=== PATIENT | male | born 1955 | race Caucasian/White ===

== ENCOUNTER 2020-10-15 05:31 | Day surgery (SDC) | payer OTHER, SELFPAY ==
[2020-10-07 16:05] VITALS: BMI 32.0
--- NOTE | 2020-10-15 07:54 | P.PNAN_ITS ---
Anes - Initial Pre Proc Eval Procedure: Operation Date: 10/15/20 09:45 Proposed Procedures p Colonoscopy - Angel Gray MD Date/Time: 10/15/20 07:54 Surgeon: Angel Gray MD Pre Op Diagnosis: positive cologuard Patient Data Age: 65 Gender: M Height: 1.73 m Weight: 95.5 kg Allergies Allergy/AdvReac Type Severity Reaction Status Date / Time No Known Allergies Verified 10/15/20 08:27 Home Medications Medication Instructions Recorded Confirmed Type aspirin [Enteric Coated Aspirin] 325 mg PO DAILY 10/07/20 10/07/20 History metoprolol succinate 100 mg PO DAILY 10/07/20 10/07/20 History simvastatin 40 mg PO DAILY 10/07/20 10/07/20 History Patient hx anesthesia problems: none Family hx anesthesia problems: none [facility] Past Medical History Medical History (Updated 10/15/20 @ 07:56 by Tay Meredith MD) Carotid arterial disease left 100% occluded, right >70% CVA (cerebral vascular accident) r side weakness HTN (hypertension) Hyperlipidemia Obesity Presence of internal carotid stent PUD (peptic ulcer disease) Social History Social History Smoking packs per day: 1.5 Smoking cigarettes per day: 30.0 Years smoked: 40 Smoking pack-years: 60.00 Smoking status: Current every day smoker Tobacco type: cigarettes Alcohol intake: current Substance use: never Substance use type: does not use Living arrangements: with family Spiritual care concerns: No Anes - Eval Final PreProcedure Day of Procedure 10/15/20 07:54 Patient weight: obese Heart: regular rate and rhythm Lungs: clear to auscultation and normal air movement Airway: Mallampati scale class II Neurological: alert and oriented Last oral intake: >/= 8 hours ASA classification: III Emergent: no Anesthetic plan: proceed Anesthesia type and monitoring: general GIVS Informed Consent: The patient's anesthetic plan and its attendant risks and benefits were discussed with the patient/family/POA. Questions were solicited and answers provided to the satisfaction of the patient/family/POA.
[2020-10-15 08:28] VITALS: BP 133/79; PULSE 76; RESP 20; TEMP 36.6; O2SAT 96
[2020-10-15] MEDS: LACTATED RINGERS 1,000 ML 150 ML IV CONT (08:35)
--- NOTE | 2020-10-15 09:06 | PM.HPGS ---
History of Present Illness History of Present Illness Consent: Risks, benefits, and alternatives have been discussed and questions answered. Patient agrees to proceed with procedure. Chief complaint: positive cologuard Narrative: Kevin Greenwood is a 65 year old male here for first colonoscopy, had FIT + Review of Systems Constitutional: Constitutional: Denies headache(s) and Denies weakness Eyes: Eyes: Denies blurry vision ENT: Reports Normal hearing present, Denies headache(s) and Denies neck pain Cardiovascular: Cardiovascular: Denies chest pain and Denies dyspnea Respiratory: Respiratory: Denies dyspnea Gastrointestinal: Gastrointestinal: Reports no additional gastrointestinal complaints Genitourinary: Genitourinary: Denies dysuria Musculoskeletal: Musculoskeletal: Denies neck pain Integumentary/Breasts: Skin/Breast: Denies dry skin Neurologic: Reports Normal hearing present, Denies headache(s) and Denies weakness Psychiatric: Psychiatric: Denies anxiety Endocrine: Endocrine: Denies change in body appearance Hematologic/Lymphatic: Hematologic/Lymphatic: Denies easy bleeding Allergic/Immunologic: Allergic/Immunologic: Denies urticaria PMFSH Past Medical History Medical History (Updated 10/15/20 @ 09:07 by Angel Gray MD) Carotid arterial disease left 100% occluded, right >70% CVA (cerebral vascular accident) r side weakness Fecal occult blood test positive HTN (hypertension) Hyperlipidemia Obesity Presence of internal carotid stent PUD (peptic ulcer disease) Social History Social History Smoking packs per day: 1.5 Smoking cigarettes per day: 30.0 Years smoked: 40 Smoking pack-years: 60.00 Smoking status: Current every day smoker Tobacco type: cigarettes Alcohol intake: current Substance use: never Substance use type: does not use Living arrangements: with family Spiritual care concerns: No Meds Home Medications and Allergies Home Medications Medication Instructions Recorded Confirmed Type aspirin [Enteric Coated Aspirin] 325 mg PO DAILY 10/07/20 10/07/20 History metoprolol succinate 100 mg PO DAILY 10/07/20 10/07/20 History simvastatin 40 mg PO DAILY 10/07/20 10/07/20 History Allergies Allergy/AdvReac Type Severity Reaction Status Date / Time No Known Allergies Verified 10/15/20 08:27 Vital Signs Vital Signs - 24 hr 10/15/20 08:28 Temperature 97.9 F Pulse Rate 76 Respiratory Rate 20 Blood Pressure 133/79 Pulse Oximetry 96 Exam Const: General: comfortable and no acute distress HENMT: General nose exam: Normal nares present Eyes: General: appearance normal, both eyes and all related structures Neck: Neck: no JVD Resp: Auscultation: clear to auscultation bilaterally Cardio: Rate: regular rate Rhythm: regular rhythm GI: Inspection: non-distended GI Palp: Yes Soft to palpation Skin: General skin exam: normal color Neuro: General: gait normal Speech: normal speech Extrem: General: normal to inspection Psych: Mental Status: mental status grossly normal Assessment and Plan Assessment and plan (1) Fecal occult blood test positive: Code(s): R19.5 - Other fecal abnormalities Status: Acute Assessment and Plan: colonoscopy
[2020-10-15 09:42] VITALS: BP 93/55; PULSE 66; RESP 17; O2SAT 97
[2020-10-15 09:52] VITALS: BP 90/60; PULSE 74; RESP 26; O2SAT 100
[2020-10-15 10:02] VITALS: BP 131/77; PULSE 68; RESP 24; O2SAT 98
== END 2020-10-15 10:17 | disposition home or self-care (01) ==
PROVIDERS: PCP Family Medicine Adolescent Medicine; Visit Provider Internal Medicine Gastroenterology
PROC: 0DJD8ZZ Inspection of Lower Intestinal Tract, Via Natural or Artificial Opening Endoscopic (ICD-10-PCS; CPT 45378; principal; 2020-10-15 09:45)
DX: R19.5 Other fecal abnormalities (principal); D12.0 Benign neoplasm of cecum; D12.5 Benign neoplasm of sigmoid colon; D12.3 Benign neoplasm of transverse colon; D12.2 Benign neoplasm of ascending colon; I69.351 Hemiplegia and hemiparesis following cerebral infarction affecting right dominant side; I65.22 Occlusion and stenosis of left carotid artery; I10 Essential (primary) hypertension; E78.5 Hyperlipidemia, unspecified; E66.9 Obesity, unspecified; K27.9 Peptic ulcer, site unspecified, unspecified as acute or chronic, without hemorrhage or perforation; F17.210 Nicotine dependence, cigarettes, uncomplicated
CPT/HCPCS: 45385; 45380; 88305; 88313; J2704; J7120

== ENCOUNTER 2022-12-13 02:00 | Day surgery (SDC) | payer OTHER, SELFPAY ==
[2022-12-01 13:17] VITALS: BMI 27.4
[2022-12-13 09:37] VITALS: BP 135/66; PULSE 66; RESP 18; TEMP 36.2; O2SAT 98
[2022-12-13] MEDS: LACTATED RINGERS 1,000 ML 150 ML IV CONT (09:48)
--- NOTE | 2022-12-13 10:30 | WPDANESEPPF ---
Anes - Initial Pre Proc Eval Procedure: Operation Date: 12/13/22 11:00 Proposed Procedures p Colonoscopy - Angel Gray MD Date/Time: 12/13/22 10:30 Surgeon: Angel Gray MD Pre Op Diagnosis: hx of colon polyps Patient Data Age: 67 Gender: M Height: 1.7 m Weight: 77 kg Last Vital Signs Temp 97.1 F L 12/13/22 09:37 Pulse 66 12/13/22 09:37 Resp 18 12/13/22 09:37 BP 135/66 12/13/22 09:37 Pulse Ox 98 12/13/22 09:37 O2 Del Method Room Air 12/13/22 09:37 Allergies Allergy/AdvReac Type Severity Reaction Status Date / Time No Known Allergies Allergy Verified 12/13/22 09:37 Home Medications Medication Instructions Recorded Confirmed Type aspirin 325 mg tablet,delayed 325 mg PO DAILY 10/07/20 12/01/22 History release metoprolol succinate 100 mg 100 mg PO DAILY #90 tabs 04/12/22 12/01/22 Rx tablet,extended release 24 hr simvastatin 40 mg tablet 40 mg PO DAILY #90 tabs 07/09/22 12/01/22 Rx Patient hx anesthesia problems: none Family hx anesthesia problems: none Results Review: All pre-operative results and documents have been reviewed as part of the pre-operative evaluation. [facility] Past Medical History Medical History (Updated 01/26/22 @ 15:43 by Ky Perez MD) Carotid arterial disease left 100% occluded, right >70% CVA (cerebral vascular accident) (2008) r side weakness Fecal occult blood test positive History of right common carotid artery stent placement (2012) HTN (hypertension) Obesity Presence of internal carotid stent PUD (peptic ulcer disease) Social History Social History Smoking packs per day: 1 Smoking cigarettes per day: 20.0 Years smoked: 50 Smoking pack-years: 50.00 Smoking status: Current every day smoker Tobacco type: cigarettes Alcohol intake: current Drinks per week: 6 Alcohol use details: socially Substance use: never Substance use type: does not use Living arrangements: other Additional living arrangements comments: with sp Spiritual care concerns: No Anes - Eval Final PreProcedure Day of Procedure 12/13/22 10:30 Patient weight: overweight Heart: regular rate and rhythm Lungs: clear to auscultation Airway: Mallampati scale class II Neurological: alert and oriented Last oral intake: >/= 8 hours ASA classification: III Emergent: no Anesthetic plan: proceed Anesthesia type and monitoring: general GIVS and standard monitoring Results Review: All pre-operative results and documents have been reviewed as part of the pre-operative evaluation. Informed Consent: The patient's anesthetic plan and its attendant risks and benefits were discussed with the patient/family/POA. Questions were solicited and answers provided to the satisfaction of the patient/family/POA.
--- NOTE | 2022-12-13 10:56 | PM.HPGS ---
History of Present Illness History of Present Illness Consent: Risks, benefits, and alternatives have been discussed and questions answered. Patient agrees to proceed with procedure. Chief complaint: hx of colon polyps Narrative: Kevin Greenwood is a 67 year old male with several colon polyps removed in 2020 Review of Systems Constitutional: Constitutional: Denies headache(s) and Denies weakness Eyes: Eyes: Denies blurry vision ENT: Reports Normal hearing present, Denies headache(s) and Denies neck pain Cardiovascular: Cardiovascular: Denies chest pain and Denies dyspnea Respiratory: Respiratory: Denies dyspnea Gastrointestinal: Gastrointestinal: Reports no additional gastrointestinal complaints Genitourinary: Genitourinary: Denies dysuria Musculoskeletal: Musculoskeletal: Denies neck pain Integumentary/Breasts: Skin/Breast: Denies dry skin Neurologic: Reports Normal hearing present, Denies headache(s) and Denies weakness Psychiatric: Psychiatric: Denies anxiety Endocrine: Endocrine: Denies change in body appearance Hematologic/Lymphatic: Hematologic/Lymphatic: Denies easy bleeding Allergic/Immunologic: Allergic/Immunologic: Denies urticaria PMFSH Past Medical History Medical History (Updated 12/13/22 @ 10:57 by Angel Gray MD) Adenomatous colon polyp Carotid arterial disease left 100% occluded, right >70% CVA (cerebral vascular accident) (2008) r side weakness Fecal occult blood test positive History of right common carotid artery stent placement (2012) HTN (hypertension) Obesity Presence of internal carotid stent PUD (peptic ulcer disease) Social History Social History Smoking packs per day: 1 Smoking cigarettes per day: 20.0 Years smoked: 50 Smoking pack-years: 50.00 Smoking status: Current every day smoker Tobacco type: cigarettes Alcohol intake: current Drinks per week: 6 Alcohol use details: socially Substance use: never Substance use type: does not use Living arrangements: other Additional living arrangements comments: with sp Spiritual care concerns: No Meds Home Medications and Allergies Home Medications Medication Instructions Recorded Confirmed Type aspirin 325 mg tablet,delayed 325 mg PO DAILY 10/07/20 12/01/22 History release metoprolol succinate 100 mg 100 mg PO DAILY #90 tabs 04/12/22 12/01/22 Rx tablet,extended release 24 hr simvastatin 40 mg tablet 40 mg PO DAILY #90 tabs 07/09/22 12/01/22 Rx Allergies Allergy/AdvReac Type Severity Reaction Status Date / Time No Known Allergies Allergy Verified 12/13/22 09:37 Vital Signs Vital Signs - 24 hr 12/13/22 09:37 Temperature 97.1 F L Pulse Rate 66 Respiratory Rate 18 Blood Pressure 135/66 Pulse Oximetry 98 Oxygen Delivery Room Air Exam Const: General: comfortable and no acute distress HENMT: Face/Nose/Sinus: Normal nares present Eyes: General: appearance normal, both eyes and all related structures Neck: Neck: no JVD Resp: Auscultation: clear to auscultation bilaterally Cardio: Rate: regular rate Rhythm: regular rhythm GI: Inspection: non-distended GI Palp: Yes Soft to palpation Skin: General skin exam: normal color Neuro: General: gait normal Speech: normal speech Extrem: General: normal to inspection Psych: Mental Status: mental status grossly normal Assessment and Plan Assessment and plan (1) Adenomatous colon polyp: Code(s): D12.6 - Benign neoplasm of colon, unspecified Status: Acute Assessment and Plan: colonoscopy
[2022-12-13 11:19] VITALS: BP 88/60; PULSE 72; RESP 21; O2SAT 97
[2022-12-13 11:29] VITALS: BP 113/75; PULSE 69; RESP 17; O2SAT 98
[2022-12-13 11:39] VITALS: BP 128/80; PULSE 74; RESP 20; O2SAT 97
== END 2022-12-13 11:47 | disposition home or self-care (01) ==
PROVIDERS: PCP Family Medicine Adolescent Medicine; Visit Provider Internal Medicine Gastroenterology
PROC: 0DJD8ZZ Inspection of Lower Intestinal Tract, Via Natural or Artificial Opening Endoscopic (ICD-10-PCS; CPT 45378; principal; 2022-12-13 11:00)
DX: Z09 Encounter for follow-up examination after completed treatment for conditions other than malignant neoplasm (principal); D12.3 Benign neoplasm of transverse colon; D12.5 Benign neoplasm of sigmoid colon; K63.5 Polyp of colon; K64.8 Other hemorrhoids; I10 Essential (primary) hypertension; I69.351 Hemiplegia and hemiparesis following cerebral infarction affecting right dominant side; F17.210 Nicotine dependence, cigarettes, uncomplicated; Z79.82 Long term (current) use of aspirin
CPT/HCPCS: 45385; 88305; J2704; J7120

== ENCOUNTER 2024-09-16 13:47 | Outpatient (CLI) | payer OTHER, MEDICARE, SELFPAY ==
--- NOTE | ~2024-09-16 | US_ITS ---
US art doppler w press LE BI INDICATION: Peripheral arterial disease TECHNIQUE: Segmental pressures and plethysmographic and Doppler waveforms of the brachial and lower e xtremity arteries were obtained. COMPARISON: None. FINDINGS: Right and left brachial artery pressures of 144 mm Hg and 154 mm Hg, respectively, are concordant (no rmal difference <= 30 mmHg). There is biphasic flow in the lower extremity arteries bilaterally The right ankle-brachial index (ALISA) is 0.97 (normal >= 0.9-1.0). The right great toe-brachial index (TBI) is 0.79 (normal >= 0.60). The left ALISA is 0.95. The left TBI is 1.02. IMPRESSION: 1. Normal bilateral ankle-brachial indices. Reviewed, dictated and finalized at location A.
--- OUTSIDE RECORDS SUMMARY | 2024-09-16 14:01 | XMS_ITS | Encounter Summary ---
Author Organization [facility] Address [address] [place] [address] Care Team Providers Care Thermodynamics Professor Name Role Phone Ky Perez MD Primary Care Prov ider Encounter Details Date Type Department Care Team (Late st Contact Info) Description 07/11/2012 Orders Only [facility] Health Information Management [address] [place] [id number] Scanning, Provider Social History Tobacco Use Types Packs/Day Years Used Date Smoking Tobacco: Never Assessed Sex and Gender Information Value Date Recorded Sex Assigned at Not on file Legal Sex Male 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 Gender Identity Not on file Sexual Orientation Not on file documented as of this encounter Plan of Treatment Not on file documented as of this encounter Procedures Procedure Name Priority Date/Time Associated Diagnosis Comments SCAN - RADIOLOGY/IMAGING 07/11/2012 documented in this encounter Results * SCAN - RADIOLOGY/IMAGING (07/11/2012) Anatomical Region Laterality Modality Other us Provider Scanning Final Result documented in this encounter Visit Diagnoses Not on filedocumented in this encounter Care Teams Thermodynamics Professor Relationship Specialty Start Date End Date Ky Perez MD [address] [place] [address] PCP - General Family Medicine 12/25/18 documented as of this encounter
--- OUTSIDE RECORDS SUMMARY | 2024-09-16 14:01 | XMS_ITS | Clinical Summary ---
Author Organization [facility] [address] Address [address] [place] [address] Care Team Providers Care Medical Laboratory Manager Name Role Phone Ky Perez MD Primary Care Prov ider Allergies No known active allergies Medications simvastatin (ZOCOR) 40 mg tablet 1 tablet daily 01/08/2019 Active aspirin 325 mg tablet Take 325 mg by mouth daily Active metoprolol XL (TOPROL-XL) 100 mg 24 hr tablet Take 1 tablet (100 mg total) by mouth daily 90 tablet 3 07/15/2019 Active Active Problems Problem Noted Date Diagnosed Date Severe concentric left ventricular hypertrophy 0 03/13/2019 Surgical History Surgery Date Site/Laterality Comments CATARACT EXTRACTION Medical History Medical History Date Comments Heart murmur Hypertension High cholesterol Stroke (HCC) Family History Relation Name Status Comments Brother Alive STROKE Father (Age 39) GUN SHOT Mother (Age 73) STROKE Sister Alive GOOD Social History Tobacco Use Types Packs/Day Years Used Date Smoking Tobacco: Every Day Cigarettes Smokeless Tobacco: Never Alcohol Use Standard Drinks/Week Comments Yes 0 (1 standard drink = 0.6 oz pur e alcohol) 12-18 PER WEEKEND Personal Safety Answer Date Recorded Getting School Help Needed Not on file 05/12 Sex and Gender Information Value Date Recorded Sex Assigned at Not on file Legal Sex Male 6:43 PM SHOP TECH Gender Identity Not on file Sexual Orientation Not on file Obstetrics History Last Filed Vital Signs Vital Sign Reading Time Taken Comments Blood Pressure 183/102 05/27/2019 8:57 AM CDT Pulse 73 05/27/2019 8:57 AM CDT Temperature - - Respiratory Rate - - Oxygen Saturation 98% 03/13/2019 4:37 PM SHOP TECH Inhaled Oxygen Concentration - - Weight 76.7 kg (169 lb) 05/27/2019 8:57 AM CDT Height 170.2 cm (5' 7) 05/27/2019 8:57 AM CDT Body Mass Index 26.47 05/27/2019 8:57 AM CDT Plan of Treatment Not on file Insurance [employer] OPEN ACCESS Care Teams Medical Laboratory Manager Relationship Specialty Start Date End Date Ky Perez MD [address] [place] [address] PCP - General Family Medicine 12/25/18
--- OUTSIDE RECORDS SUMMARY | 2024-09-16 14:01 | XMS_ITS | Referral Summary ---
Author Organization [facility] [address] Address [address] [place] [address] Care Team Providers Care Acid Patroller Name Role Phone Ky Perez MD Primary [...] Severe concentric left ventricular hypertrophy 0 03/13/2019 Social History Tobacco Use Types Packs/Day Years [...] on file Legal Sex Male 6:43 PM UM RN Gender Identity Not on file Sexual Orientation Not on file Last Filed Vital Signs Vital Sign Reading Time Taken Comments Blood Pressure 183/102 05/27/2019 8:57 AM CDT Pulse 73 05/27/2019 8:57 AM CDT Temperature - - Respiratory Rate - - Oxygen Saturation 98% 03/13/2019 4:37 PM UM RN Inhaled Oxygen Concentration - - Weight 76.7 kg (169 lb) 05/27/2019 8:57 AM CDT Height 170.2 cm (5' 7) 05/27/2019 8:57 AM CDT Body Mass Index 26.47 05/27/2019 8:57 AM CDT Plan of Treatment Not on file Insurance [employer] OPEN ACC[employer] Care Teams Acid Patroller Relationship Specialty Start Date End Date Ky Perez MD [address] [place] [address] PCP - General Family Medicine 12/25/18
--- OUTSIDE RECORDS SUMMARY | 2024-09-16 14:01 | XMS_ITS | Clinical Summary ---
Author Organization [facility] Address [address] [place] [address] Care Team Providers Care Education Manager Name Role Phone Ky Perez MD Primary Care Provider + Source Comments [facility],non-owned Affiliates and Associated Physician Practices is amultiple site organization consisting of ambulatory clinics and hospital sitesin [place], [place], [place] and [place]. This disclosure is being madepursuant to the Care Everywhere program and may not contain all information available regarding this patient. Last updated 17.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 04/09/2014 Occlusion and stenosis of unspecified carotid ar bernice 08/08/2012 Family History Medical History Relation Name Comments Hypertension Mother Status: d Relation Name Status Comments Mother Social History Tobacco Use Types Packs/Day Years Used Date Smoking Tobacco: Every Day Cigarettes Smokeless Tobacco: Never Alcohol Use Standard Drinks/Week Comments Yes 10 (1 standard drink = 0.6 oz pu re alcohol) Sex and Gender Information Value Date Recorded Sex Assigned at Not on file Legal Sex Male 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 BLUEPRINT REPRODUCER Gender Identity Not on file Sexual Orientation Not on file Last Filed Vital Signs Vital Sign Reading Time Taken Comments Blood Pressure 126/72 04/27/2016 8:57 AM BLUEPRINT REPRODUCER Pulse 80 04/27/2016 8:57 AM BLUEPRINT REPRODUCER Temperature 37 C (98.6 F) 04/27/2016 8:57 AM BLUEPRINT REPRODUCER Respiratory Rate 16 08/21/2012 9:02 AM CDT Oxygen Saturation 96% 04/27/2016 8:57 AM BLUEPRINT REPRODUCER Inhaled Oxygen Concentration - - Weight 77.1 kg (170 lb) 04/27/2016 8:57 AM BLUEPRINT REPRODUCER Height 170.2 cm (5' 7) 04/27/2016 8:57 AM BLUEPRINT REPRODUCER Body Mass Index 26.63 04/27/2016 8:57 AM BLUEPRINT REPRODUCER Plan of Treatment Health Maintenance Due Date Last Done Comments COLOGUARD (AGES 45-75) - COL ON CA SCREENING 1955 COLON MONITORING 1955 COLONOSCOPY - COLON CA SCREENING 1955 CT COLONOGRAPHY - COLON CA SCREENING 1955 Colorectal Cancer Screening 1955 FIT - COLON CA SCREENING 1955 FLEX SIG - COLON CA SCREENING 1955 LIPID TESTING 1955 HEPATITIS C SCREENING 10/01/1973 DTAP/TDAP/TD VACCINES (1 - Tdap) 10/05/1974 PNEUMOCOCCAL VACCINE 50+ (1 of 2 - PCV) 10/05/1974 ZOSTER VACCINE (1 of 2) 10/05/2005 AAA SCREENING 10/05/2020 COVID-19 VACCINE (1 - 2023-2 5 season) 2023 DEPRESSION SCREENING 02/27/2024 INFLUENZA VACCINE (#1) 2024 Respiratory Syncytial Virus (RSV) Vaccine Pt: or over 60 yrs (1 - 1-dose 75+ series) 10/05/2030 HEPATITIS B VACCINE Aged Out No longe r eligible based on patient's age to complete this topic HIB VACCINE Aged Out No longer eligi ble based on patient's age to complete this topic HPV VACCINE Aged Out No longer eligi ble based on patient's age to complete this topic MENINGOCOCCAL (Group B) VACC INE SHARED DECISION-MAKING Aged Out No longer eligibl e based on patient's age to complete this topic MENINGOCOCCAL GROUPS A/C/Y/W VACCINE Aged Out No longer eligible b ased on patient's age to complete this topic Insurance CIGNA CIGNA Care Teams Education Manager Relationship Specialty Start Date End Date Ky Perez MD [address] [place] [id number] PCP - General 11/11/13
== END 2024-09-16 13:48 | disposition home or self-care (01) ==
LOC: CHSIMG 13:53
PROVIDERS: PCP Family Medicine Adolescent Medicine; Visit Provider Podiatrist Foot & Ankle Surgery
DX: I73.9 Peripheral vascular disease, unspecified (principal)
CPT/HCPCS: 93923